=== PATIENT | male | born 1975 | race Caucasian/White ===

== ENCOUNTER 2021-02-14 07:52 | Emergency (ER) | payer BC, SELFPAY ==
[2021-02-14 07:55] VITALS: BP 106/79; PULSE 66; RESP 18; TEMP 37.2; O2SAT 91; BMI 19.9
--- NOTE | 2021-02-14 08:05 | EKG12_ITS ---
Test Reason : AB PAIN Blood Pressure : / mmHG Vent. Rate : 060 BPM Atrial Rate : 060 BPM P-R Int : 122 ms QRS Dur : 092 ms QT Int : 424 ms P-R-T Axes : 054 085 060 degrees QTc Int : 424 ms Normal sinus rhythm Normal ECG Confirmed by MARINO CONRAD, MARSHA ([id number]), web editor SERENA SANTIAGO ([id number]) on 02/15/2021 9:56:54 AM Referred By: KATHI Confirmed By:MARSHA PICHARDO MD
--- NOTE | 2021-02-14 08:05 | CT_ITS ---
STUDY: CT ABDOMEN AND PELVIS WITH CONTRAST REASON FOR EXAM: Male, 46 years old. Pain. Evaluate for appendicitis. RADIATION DOSAGE (If Supplied By Facility): CTDIvol = ( 11.02 ) mGy, DLP = ( 259.66 ) mGycm TECHNIQUE: Transaxial images were obtained from the dome of the diaphragm to the symphysis pubis with oral contrast. 100 ml of ISOVUE-300 contrast was administered. Sagittal and coronal images were reconstructed. Individualized dose optimization techniques were used for this CT. COMPARISON: None. FINDINGS: There are mucus impacted bronchi in the left lower lobe with associated patchy airspace opacities. The visualized portions of the heart and pericardium are within normal limits. There are no calcified gallstones present. The liver is within normal limits. There are no suspicious hepatic lesions. The spleen is normal in size. The pancreas is within normal limits. The adrenal glands are within normal limits. There are no renal or ureteral stones. There is no hydronephrosis. There are no focal renal lesions. Normal visualized stomach. There is no bowel obstruction or inflammation. The appendix is not visualized, but there are no findings to suggest acute appendicitis. There are surgical clips noted in the right lower quadrant. The aorta is normal in caliber. There is no abdominal or pelvic free air, free fluid, fluid collection or lymphadenopathy. There are no destructive osseous lesions. CT/Abdomen/Pelvis WITH Contrast IMPRESSION: No bowel obstruction or inflammation. Appendix not identified, but no findings to suggest appendicitis. Surgical clips in the right lower quadrant. Clinical correlation is recommended to evaluate for any prior history of appendectomy. Normal kidneys. No hydronephrosis. Mucous impacted bronchi in the left lower lobe with associated patchy airspace opacity, consistent with an infectious etiology. Electronically Signed: Modesto Ferguson MD at 10:40 EDT Tel , Service support ,
--- NOTE | 2021-02-14 08:06 | EDS_ITS ---
HPI HPI - GI History of Present Illness Chief Complaint: Abd Pain Detail of Chief Complaint: Abdominal pain that started yesterday Informant: patient Abdominal Pain/Flank Pain Current Severity: Mild Narrative Narrative: Patient presents to the emergency department complaint of abdominal pain initially started yesterday [facility]. Patient states p ain initially was mild in the epigastric region. Patient did had some energy drinks. Patient states that he slept okay last night really did not notice it much and actually went to work this morning. While at work the pain became worse and he vomited while at work and then EMS was called and he also vomited on way to the hospital. Currently states his pain is just mild and has minimal to no nausea. Patient has not had discomfort like that before. He denies urinary symptoms. Pain does not seem to radiate to his back. Patient has had prior appendectomy. He denies any chest pain. No significant family history of heart disease. Prior similar symptoms: No PFSH PFSH Medical History (Updated 02/14/21 @ 11:[address] Stephane Addison, DO) Asthma Epilepsy Home Medications ondansetron 4 mg PO Q8H PRN PRN #10 tab 02/14/21 [Rx Last Taken Unknown] Allergy/AdvReac Type Severity Reaction Status Date / Time No Known Allergies Allergy Verified 02/14/21 07:54 Social History Smoking Status: Current every day smoker tobacco type: cigarettes ROS ROS ED Constitutional Constitutional ED: Reports systems reviewed and no addt'l complaints, except as documented; Denies body ache(s), change in weight or chills Eyes Eyes: Denies acute decrease in peripheral vision, change in vision, double vision or loss of vision ENT ENT ED: Reports none; Denies ear pain, lip swelling, loss taste/smell, neck pain, otalgia or sore throat Cardiovascular Cardiovascular: Reports none; Denies abdominal pain, chest pain with activity, leg edema, lightheadedness, palpitations, rapid heart rate or syncope Respiratory/Chest Respiratory/Chest: Reports none; Denies change in mental status, dry cough, dyspnea, hemoptysis, shortness of breath at rest or shortness of breath with exertion Gastrointestinal Gastrointestinal: Reports none, abdominal pain, nausea and vomiting; Denies change in stool character, diarrhea, hematemesis, hematochezia, melena or rectal bleeding Genitourinary Genitourinary ED: Reports none; Denies abdominal discomfort, anuria, dysuria, genital pain or polyuria Musculoskeletal Musculoskeletal: Reports none; Denies arthralgias, back pain, difficulty walking, extremity pain, muscle weakness or myalgias Integumentary Reports none; Denies abscess or rash Neurologic Neurologic: Reports none; Denies abnormal gait, confusion, focal weakness, sung quent falls, headache(s), loss of vision, numbness, paresthesias, radicular pain, vertigo or weakness Psychiatric Psychiatric: Reports systems reviewed and no addt'l complaints, except as documented and none; Denies behavioral changes, confusion, difficulty concentrating, hallucinations, suicidal ideation, tactile hallucinations or visual hallucinations Endocrine Endocrinology: Denies none, cold intolerance, excessive sweating, fatigue or heat intolerance Hematologic/Lymphatic Hematologic/Lymphatic: Reports none; Denies anemia, easy bleeding or easy bruising Allergic/Immunologic Allergic/Immunologic ED: Denies as per HPI, none, lip swelling, mouth swelling, throat swelling, tongue swelling or hives EXAM Physical Exam Const Vital Signs: 02/14/21 07:55 02/14/21 09:31 02/14/21 11:23 Temperature 98.9 F Temperature Source Temporal Pulse Rate 66 55 L 51 L Respiratory Rate 18 20 H 15 Blood Pressure 106/79 Blood Pressure Mean 88 Pulse Ox 91 98 98 Oxygen Delivery Method Room Air Room Air Room Air Positive well nourished and well developed General Appearance ED: well developed and NAD HEENT Reports TM's clear and moist mucous membranes normocephalic and atraumatic; Negative for trauma or tenderness Tympanic Membrane ED: Yes TM's clear Eyes PERRL and EOMs intact bilaterally General Eye ED: Negative for pale conjunctiva or scleral icterus Neck no lymphadenopathy, supple and no JVD General: Negative for tenderness Chest Wall inspection of chest normal and palpation of chest normal Chest: Negative for tenderness Resp normal respiratory effort and clear to auscultation bilaterally Effort and Inspection: Negative for respiratory distress or pain with movement Auscultation: Negative for rhonchi, wheezes or diminished lung sounds Cardio regular rate, regular rhythm, S1 normal heart sound, S2 normal heart sound and no murmurs Peripheral Pulses: pulses 2+ throughout GI normal to inspection, nondistended, normoactive bowel sounds, soft to palpation and no masses GI Narrative: Patient has tenderness palpation of epigastric region with some mild guarding. There is no rebound, rigidity, or peritoneal signs. No pulsatile masses palpated. Palpation: tender Back/Spine no CVA tenderness and no thoracic nor lumbar tenderness Extremity normal to inspection General Extremety ED: Negative for edema General Extremity: Negative for edema Neuro oriented x3, CN's II-XII intact bilaterally, no sensory deficits noted and gait normal Sensorium / Orientation: awake, alert, oriented to person, oriented to place and oriented to time Motor Exam: strength 5/5 throughout and strength abnormal Psych mental status grossly normal Skin no rashes or lesions noted and no wounds MDM MDM MDM Narrative Medical decision making narrative: Patient's abdominal pain significantly improved. Work-up is unremarkable in the emergency department other than on CT of abdomen pelvis he was noted to have some left lower lobe infiltration which etiology is uncertain. Patient really has not had any pneumonia symptoms clinically. Patient states he has his chronic smoker's cough. He denies chills or sweats. We will send off a Covid test however he does not want wait for the results and results will be texted to his phone. Clinically I do not feel patient has pneumonia. Etiology of his abdominal pain also unclear at this time. Patient advised to return if worsening pain, fever, persistent vomiting, or condition worsen anyway. He is to return if increasing shortness of breath or conditions worsen anyway. Lab Data Attestation: I reviewed the patient's lab results. Labs: Laboratory Results - last 24 hr 02/14/21 02/14/21 02/14/21 08:17 08:17 08:17 WBC 10.5 RBC 4.66 Hgb 13.6 Hct 43.2 MCV 92.7 MCH 29.2 MCHC 31.5 L RDW Std Deviation 44.5 H RDW Coeff of Yisel 13.1 Plt Count 275 MPV 10.0 Immature Gran % (Auto) 0.600 Neut % (Auto) 76.1 H Lymph % (Auto) 14.4 L Bent % (Auto) 7.4 Eos % (Auto) 1.1 Baso % (Auto) 0.4 Absolute Neuts (auto) 8.0 H Absolute Lymphs (auto) 1.52 Nucleated RBC % 0 Sodium 142 Potassium 4.8 Chloride 112 H Carbon Dioxide 28.0 Anion Gap 2 L BUN 22 H Creatinine 1.03 Estim Creat Clear Calc 75.97 Est GFR (MDRD) Af Amer 99 Est GFR (MDRD) Non-Af 82 BUN/Creatinine Ratio 21.4 H Glucose 136 H Lactic Acid 1.9 Calcium 8.5 Total Bilirubin 0.30 AST 32 ALT 26 Alkaline Phosphatase 81 Troponin I High Sens 6 Total Protein 6.7 Albumin 3.2 Globulin 3.5 Albumin/Globulin Ratio 0.9 Lipase 62 L Urine Color Urine Clarity Urine pH Ur Specific [place] Urine Protein Urine Glucose (UA) Urine Ketones Urine Occult Blood Urine Nitrite Urine Bilirubin Urine Urobilinogen Ur Leukocyte Esterase Urine RBC Urine WBC Ur Squamous Epith Cells Urine Bacteria Urine Mucus 02/14/21 09:30 WBC RBC Hgb Hct MCV MCH MCHC RDW Std Deviation RDW Coeff of [place] Plt Count MPV Immature Gran % (Auto) Neut % (Auto) Lymph % (Auto) Bent % (Auto) Eos % (Auto) Baso % (Auto) Absolute Neuts (auto) Absolute Lymphs (auto) Nucleated RBC % Sodium Potassium Chloride Carbon Dioxide Anion Gap BUN Creatinine Estim Creat Clear Calc Est GFR (MDRD) Af Amer Est GFR (MDRD) Non-Af BUN/Creatinine Ratio Glucose Lactic Acid Calcium Total Bilirubin AST ALT Alkaline Phosphatase Troponin I High Sens Total Protein Albumin Globulin Albumin/Globulin Ratio Lipase Urine Color Yellow Urine Clarity Sl. Cloudy Urine pH 6.0 Ur Specific [place] 1.020 Urine Protein 30 H Urine Glucose (UA) Normal Urine Ketones Negative Urine Occult Blood Negative Urine Nitrite Negative Urine Bilirubin Negative Urine Urobilinogen Normal Ur Leukocyte Esterase Negative Urine RBC 0 SEEN Urine WBC 0 SEEN Ur Squamous Epith Cells 0-5 SEEN Urine Bacteria 0 SEEN Urine Mucus 0 SEEN Radiography Diagnostic Testing: Radiology Impression Abdomen/Pelvis CT 02/14/21 08:05 IMPRESSION: No bowel obstruction or inflammation. Appendix not identified, but no findings to suggest appendicitis. Surgical clips in the right lower quadrant. Clinical correlation is recommended to evaluate for any prior history of appendectomy. Normal kidneys. No hydronephrosis. Mucous impacted bronchi in the left lower lobe with associated patchy airspace opacity, consistent with an infectious etiology. Electronically Signed: Modesto Ferguson MD at 10:40 EDT Tel , Service support , EKG Initial EKG: Attestation: I personally reviewed and interpreted this EKG as follows: Comments: Sinus rhythm with a ventricular rate of 60 bpm with no acute ST segment changes. Discharge Plan Triage Chief Complaint: Abd Pain ED Provider: Stephane Addison Dx/Rx/DC Orders Clinical Impression: Abdominal pain Instructions: ED Abdominal Pain Unkn Cause Male... Prescriptions: New ondansetron [ondansetron] 4 MG tablet 4 mg PO Q8H PRN PRN (Reason: Nausea) Qty: 10 RF: 0 Referrals: NAVNEET MATOS [Other] Activity Restrictions/Additional Instructions: See your primary care physician in 3 to 5 days. Disposition Disposition: Home, Self Care
[2021-02-14] MEDS: Ondansetron 4 MG/2 ML Vial IV (08:16)
[2021-02-14] MEDS: 0.9% Normal Saline 1,000 ML 125 ML IV (08:23)
[2021-02-14 08:24] LABS: Absolute Lymphocyte Count 1.52 X10^3/uL (0.83-4.51); Basophil# 0.04 X10^3/uL; Basophil% 0.4 % (0-1); Eosinophil# 0.12 X10^3/uL; Eosinophils% 1.1 % (0-5); Hematocrit 43.2 % (40-54); Hemoglobin 13.6 g/dL (13.0-16.5); Lymphocyte # 1.52 X10^3/ul (0.83-4.51); Lymphocyte % 14.4 % (19-41); Mean Corp Hgb Conc 31.5 g/dL (32-36); Mean Corpuscular Hgb 29.2 pg (27.0-32.0); Mean Corpuscular Volume 92.7 fL (80-94); Monocyte# 0.78 X10^3/uL; Monocyte% 7.4 % (0-10); NRBC Flagged by Analyzer 0 % (0-5); Neutrophil # 8.02 X10^3/uL (2.7-7.7); Neutrophil % 76.1 % (47-70); Platelet Count 275 K/mm3 (150-450); RBC Distribution Width CV 13.1 % (11.6-14.6); RBC Distribution Width SD 44.5 fl (35.1-43.9); Red Blood Count 4.66 M/mm3 (4.6-6.2); White Blood Count 10.5 K/mm3 (4.4-11.0)
[2021-02-14 08:46] LABS: ALB/GLOB Ratio 0.9 RATIO (0.9-2.4); AST(SGOT) 32 U/L (15-37); Alanine Aminotransfer ALT/SGPT 26 U/L (16-61); Albumin, Serum 3.2 g/dL (3.2-5.0); Alkaline Phosphatase 81 U/L (45-117); Anion Gap 2 (5-15); BUN 22 mg/dL (7-18); BUN/Creat Ratio 21.4 RATIO (10-20); Calcium,Total 8.5 mg/dL (8.5-10.1); Chloride 112 mmol/L (98-107); Creatinine, Serum 1.03 mg/dL (0.70-1.30); EST Glomerular Filtration Rate 82 mL/min (>60); Est Glom Filt Rate - Afr Amer 99 mL/min (>60); Estimated Creatinine Clearance 75.97 ml/min; Globulin 3.5 g/dL (2.2-4.2); Glucose 136 mg/dL (74-106); Lipase 62 U/L (73-393); Potassium 4.8 mmol/L (3.5-5.1); Protein, Total 6.7 g/dL (6.4-8.2); Sodium Level 142 mmol/L (136-145); Troponin-I HS 6 pg/mL (3.0-78.0)
[2021-02-14 08:51] LABS: Lactic Acid 1.9 mmol/L (0.4-1.9)
[2021-02-14 09:31] VITALS: PULSE 55; RESP 20; O2SAT 98
[2021-02-14 09:36] LABS: Bacteria 0 SEEN /hpf (None Seen); Mucous, Urine 0 SEEN /hpf (<or=2+); Red Blood Cells-Urine 0 SEEN /hpf (0-5); White Blood Cells 0 SEEN /hpf (0-5)
[2021-02-14 09:41] LABS: Color, Urine Yellow (Yellow); Glucose, Dipstick Normal (Normal); Ketone-Dipstick Negative (Negative); Leukocyte Esterase-Dipstick Negative /ul (Negative); Nitrite-Dipstick Negative (Negative); Occult Blood-Urine Negative /ul (Negative); Protein-Dipstick 30 mg/dl (Negative); Urine Bilirubin Dipstick Negative (Negative); Urine Clarity Sl. Cloudy (Clear); Urine Urobilinogen Normal (Normal)
[2021-02-14 09:50] LABS: Squamous Epithelial Cells - UA 0-5 SEEN /hpf (0-5)
[2021-02-14 11:23] VITALS: PULSE 51; RESP 15; O2SAT 98
[2021-02-14 11:40] VITALS: BP 139/84; PULSE 77; RESP 16; O2SAT 96
== END 2021-02-14 11:45 | disposition home or self-care (01) ==
PROVIDERS: Emergency Provider Emergency Medicine
DX: R10.13 Epigastric pain (principal); J45.909 Unspecified asthma, uncomplicated; F17.210 Nicotine dependence, cigarettes, uncomplicated
CPT/HCPCS: 74177; 80053; 81001; 83605; 83690; 84484; 85025; 87426; 93005; 96361; 96374; 99285; J7030; J2405